=== PATIENT | male | born 2000 | race Caucasian/White ===

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

== ENCOUNTER 2023-03-30 09:24 | Emergency (ER) | payer OTHER ==
[~2023-03-30] VITALS: Ht 172.7 cm; Wt 87.0 kg
[2023-03-30 09:26] VITALS: BP 124/70; PULSE 66; RESP 19; TEMP 97.9; O2SAT 99
== END 2023-03-30 11:37 | disposition home or self-care (01) ==
LOC: ER 09:24
DX: M54.50 Low back pain, unspecified (principal)
CPT/HCPCS: 99281

== ENCOUNTER 2023-11-06 22:34 | Emergency (ER) | payer MEDICAID, OTHER ==
[~2023-11-06] VITALS: Ht 172.7 cm; Wt 89.0 kg
[2023-11-06 22:39] VITALS: BP 123/75; PULSE 63; RESP 18; TEMP 98.7; O2SAT 99
[2023-11-06 23:15] LABS: CLARITY URINE CLEAR (CLEAR); COLOR URINE YELLOW (YELLOW); GLUCOSE URINE NEGATIVE (NEGATIVE); KETONES URINE 1+ (NEGATIVE); LEUKOCYTE ESTERASE URINE NEGATIVE (NEGATIVE); NITRITE URINE NEGATIVE (NEGATIVE); OCCULT BLOOD URINE NEGATIVE (NEGATIVE); PROTEIN URINE NEGATIVE (NEGATIVE); SPECIFIC GRAVITY URINE 1.014 (1.005-1.030); UROBILINOGEN URINE 0.2 E.U./dL (0.2-1.0)
[2023-11-06 23:27] LABS: BASOPHILS % 0.4 % (0.0-2.0); CHLORIDE 109 mEq/L (98-107); EOSINOPHILS % 1.2 % (0.0-5.0); HEMATOCRIT. 41.2 % (42.0-52.0); HEMOGLOBIN. 14.3 g/dL (14.0-18.0); LYMPHOCYTES % 24.7 % (20.0-50.0); MEAN CORPUSCULAR HEMOGLOBIN 32.8 pg (28.0-32.0); MEAN CORPUSCULAR HGB CONC 34.6 g/dL (31.0-37.0); MEAN CORPUSCULAR VOLUME 94.8 fL (80.0-94.0); MONOCYTES % 11.9 % (2.0-8.0); NEUTROPHILS % 61.8 % (40.0-76.0); PLATELET 132 x1000/uL (130-400); RED BLOOD CELL COUNT 4.34 mill/uL (4.7-6.1); RED CELL DISTRIBUTION WIDTH 12.3 % (11.6-14.6); SODIUM 141 mEq/L (136-145); WHITE BLOOD COUNT 5.8 x1000/uL (4.5-11.0)
[2023-11-06 23:28] LABS: CARBON DIOXIDE 25 mEq/L (21-32)
[2023-11-06 23:29] LABS: CALCIUM 8.9 mg/dL (8.7-10.4)
[2023-11-06 23:33] LABS: CREATININE 0.9 mg/dL (0.6-1.3); GLUCOSE 95 mg/dL (70-105)
[2023-11-06 23:34] LABS: UREA NITROGEN BLOOD 8 mg/dL (9-23)
[2023-11-06 23:35] LABS: ALANINE AMINOTRANSFERASE 51 IU/L (10-49); ASPARTATE AMINOTRANSFERASE 75 IU/L (<34)
[2023-11-06 23:36] LABS: BILIRUBIN DIRECT 0.3 mg/dL (<=3.0); BILIRUBIN TOTAL 0.8 mg/dL (0.1-1.0)
[2023-11-07] MEDS: ONDANSETRON 4MG ODT PO STA (00:53)
[2023-11-07] MEDS: MAGNESIUM/ALUMINUM HYDROXIDE/SIMETHICONE 30ML UDC PO STA (00:53)
[2023-11-07] MEDS: PANTOPRAZOLE 40MG DR TABLET PO ONE (01:00)
[2023-11-07] MEDS ORDERED: OMEP40CA20 MT (01:52)
== END 2023-11-07 02:30 | disposition home or self-care (01) ==
LOC: ER 22:49
DX: R10.13 Epigastric pain (principal)
CPT/HCPCS: 99284; 80076; 80048; 81003; 83690; 85025; 36415; Q0162